=== PATIENT | female | born 1990 | race Caucasian/White ===

== ENCOUNTER → 2016-11-22 10:58 | Day surgery (SDC) | payer BC, MEDICAID ==
--- NOTE | 2016-11-21 01:49 | HP ---
HISTORY AND PHYSICAL: DATE OF PLANNED ADMISSION AND SURGERY: 11/22/16 HISTORY OF PRESENT ILLNESS: Ms. Jimenez is a 26-year-old white female who is admitted with bladder calculus, distal left ureteral calculus, and left renal calculus for cystoscopy, cystolitholapaxy, left ureteroscopy, laser lithotripsy , and left ureteral stent placement. I have been following Yamilet for many years now because of neurogenic bladder. 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 She has been in a wheelchair. She has a neurogenic bladder, which has been managed with oxybutinin and intermittent catheterizations. She has history of Lt vesico ureteral reflux, urinary tract infections, but no pyelonephritis. She was noted to have a renal calculus, which was followed periodically with ultrasounds. It has been non-obstructing and minimally symptomatic. She was reevaluated recently and had a renal ultrasound, which showed a 2.5-cm calculus in the area of the left renal pelvis and smaller calculi in the left calyces. She then had a noncontrast CT of the abdomen and pelvis. In addition to the left renal calculi, the CT showed left hydroureter with the ureter dilated all the way to the level of the ureterovesical junction where a 2-cm oblong calculus was noted. There was also a 3-cm calculus noted in the bladder. The renal parenchyma looked good, with minimal scarring. The patient had a recent urinary tract infection growing Staph aureus that was sensitive to all antibiotics. She was treated with 10 days' course of Bactrim that was completed just day before this admission. PAST MEDICAL HISTORY: Otherwise negative. MEDICATIONS: 1. She is on Ditropan XL 10 mg daily for urinary incontinence. 2. She is on MiraLAX daily for her chronic constipation. 3. She is on multivitamins. ALLERGIES: She has no allergies to medications. PHYSICAL EXAMINATION GENERAL: Pleasant and small statured white female. VITAL SIGNS: Normal. LUNGS: Clear. She has no CVA tenderness. HEART: Regular and rhythmic. No murmurs. EXTREMITIES: She is paraplegic with poor function of her hands, and muscle wasting, and spastic paraplegia of her lower extremities. IMPRESSION: C7 spinal cord injury with resultant spastic paraplegia, neurogenic bladder, and large calculi in the bladder, the distal left ureter and the left kidney, with normal renal parenchyma by CT. PLAN: Cystoscopy and cystolitholapaxy followed by left ureteroscopy, laser lithotripsy, and left ureteral stent placement. I am not sure that the bladder and the ureteral calculi can all be treated in one session. After the treatment of her bladder and ureteral calculi, the patient will need to have a percutaneous nephrolithotripsy to treat her left staghorn calculus and she will be referred to [facility] for that procedure at a later date. I discussed above plans with Yamilet's mom and all her questions were answered. CC: Dr. Cayla Starkey* [id number]/[facility] #: [id number] MAGNO
[~2016-11-22 10:58] MED LIST: Buffered Lidocaine 1% SYRIN* 3 ML/SYR SYRINGE INTRADERM ONE; Iohexol 180 (CONTRAST) 10 ML SDV IV ONE; Midazolam* 1 MG/ML 2 ML VIAL (2 MG) ONE; cefTRIAXone(*) 2 GM ADDV.VIAL IVPB ONE
--- NOTE | 2016-11-22 13:52 | RAD ---
INDICATION: Cystoscopy and left ureteroscopy COMPARISON: None FINDINGS: 8 seconds of fluoroscopy were provided for the urology department. Fluoroscopic spot imaging of the abdomen were obtained for operative control and show a retrograde examination with subsequent placement of a left ureteral stent . CPT II Codes: 6045F (fluoro time doc)
[2016-11-22 17:53] VITALS: BP 116/68
--- NOTE | 2016-11-23 00:19 | OP ---
DATE OF OPERATION: 11/22/16 [facility] DATE OF : 88 SURGEON: Micheal Reid MD ANESTHESIOLOGIST: Dr. Mariano Siu. ANESTHESIA: Spinal. PRE-OP DIAGNOSES: 1. Bladder calculi. 2. Left ureteral and left renal calculi. 3. Neurogenic bladder. POST-OP DIAGNOSES: 1. Small bladder calculi. 2. Left ureteral and left renal calculi, mostly gravel like. 3. Neurogenic bladder. OPERATIONS: 1. Cystoscopy. 2. Cystolitholapaxy. 3. Left ureteroscopy and partial evacuation of gravel in left ureter and left renal pelvis. 4. Left retrograde pyelography and placement of left ureteral stent (6-Slovenian). 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 She has a neurogenic bladder, which is managed with a combination of oxybutynin and intermittent catheterization every 3 hours. On her recent routine imaging, she was noted to have a 2 cm calculus in the left renal pelvis, several left renal calculi, a 2 cm calculus in the distal left ureter and a 3 to 4 cm calculus in the bladder. Because of the above findings, the patient is brought in for treatment of the bladder and the left ureteral calculi. PATHOLOGY: At cystoscopy, the bladder mucosa showed slight hyperemia. There were no suspicious bladder lesions seen. The left ureteral orifice looked refluxing. The right ureteral orifice was somewhat patulous, but less than the left side. There was a large amount of small calculi that were located in the right base of the bladder and correspond to the finding of the large bladder calculus seen on CT. Upon left ureteroscopy, the left ureter was dilated. There was a 2 cm cluster of gravel noted in the ureter and a large amount of gravel in the left renal pelvis. Those findings correspond to the findings on the CT scan. The gravel seen in the left ureter and the left renal pelvis was composed of very small stone fragments measuring about 1 to 2 mm each. There were no solid stones noted. Left retrograde pyelography showed moderate left ureteral dilatation and tortuosity. There was only [id number] left hydronephrosis. DESCRIPTION OF PROCEDURE: After successful spinal anesthesia, the patient was placed in the lithotomy position and was prepped and draped for cystoscopy. Cystoscopy was performed. The findings in the bladder and in particular the bladder calculi were noted. A size 25 cystoscope was then introduced inside the bladder. The bladder was irrigated with the Vtrimik evacuator and all the bladder calculi were evacuated and they were sent for stone analysis. Cystoscopy showed no residual bladder calculi. A flexible tip guidewire was then introduced into the left orifice and positioned in the area of the renal pelvis. A size 6.5 semi-rigid ureteroscope was then introduced under direct vision inside the left ureter. No calculi were seen in the distal ureter as visualized on the CT, however, there was a large cluster of stone gravel noted in the mid ureter. The ureteroscope was then introduced without difficulty all the way to the level of the renal pelvis , and another large cluster of gravel was noted there. Partial irrigation of the renal pelvis was then done trying to evacuate the gravel; however, the fragments were too large to fit inside the port of the ureteroscope. The ureteroscope was then removed keeping the guidewire in place. A size 8- Slovenian open-ended catheter was then fed on top of the guidewire and positioned in the area of the renal pelvis and the guidewire was removed. Gentle irrigation was then carried and some of the fragments in the renal pelvis and in the ureter were evacuated; however, a significant amount remained and could not be evacuated. The fragments were too small to basket. After performing a retrograde pyelography, a size 6-Slovenian stent was then placed with the proximal end coiling in the renal pelvis and the distal end coiling inside the bladder. A size 16-Slovenian Barlow catheter was then passed inside the bladder and the balloon inflated with 10 cc of water. The patient tolerated the procedure and left the operating room in good condition. The gravel noted in the left ureter and the left kidney is most likely secondary to the reflux and the stasis of urine inside the ureter and the collecting system. Will keep the Barlow catheter in place to decompress the bladder and the collecting system and hopefully the stone fragments will pass spontaneously inside the bladder and they can be irrigated afterwards. If the stone fragments cannot be evacuated that way, then she might need to have a relatively large nephrostomy tube to irrigate her collecting system to evacuate all the stone fragments. CC: Cayla Starkey MD* [id number]/[facility] #: [id number] MAGNO
== END | disposition home or self-care (01) ==
LOC: OR 10:58
PROVIDERS: ATTEND Urology
DX: N13.2 Hydronephrosis with renal and ureteral calculous obstruction (principal); N21.0 Calculus in bladder; G82.20 Paraplegia, unspecified; N31.9 Neuromuscular dysfunction of bladder, unspecified
CPT/HCPCS: 74420; 82365; 88300; C1876; J0696; J2250